=== PATIENT | male | born 1940 | race Caucasian/White ===

== ENCOUNTER → 2023-04-29 12:43 | Outpatient (CLI) | payer OTHER, SELFPAY ==
--- NOTE | ~2023-04-29 | CT_ITS ---
CT of the Abdomen and Pelvis: Indication: Bladder mass Technique: 2.5 mm axial scans were obtained through the abdomen and pelvis prior to and following in travenous administration of 130 cc of Omnipaque 350. Dose reduction technique was used on this scan b y utilizing automated exposure control and iterative reconstruction technique. The dose-length produc t (DLP) was 1943.94 mGy-cm. Findings: Scans through the lung bases are unremarkable. Small hiatal hernia noted. Numerous small hepatic cysts are present. Probable subcentimeter hyperdense right renal cyst. The spl een, pancreas, gallbladder, adrenals and kidneys are otherwise within normal limits. There are athero sclerotic calcifications of the aorta. No lymphadenopathy. No bowel obstruction or bowel wall thickening. There is extensive colonic diverticulosis. Images through the pelvis were performed. There is a 1.5 cm mass at the posterior left urinary bladde r. There is a 2.5 cm right-sided urinary bladder diverticulum. Prostate gland is enlarged, and indent s into the bladder base. No ascites. Impression: 1.5 cm mass of the posterior left urinary bladder. Suspicious for bladder neoplasm until proven other card. Consider cystoscopy. Right-sided urinary bladder diverticulum. Enlarged prostate gland. Small hiatal hernia. Reviewed, dictated and finalized at location [facility] Impression: 1.5 cm mass of the posterior left urinary bladder. Suspicious for bladder neopl asm until proven otherwise. Consider cystoscopy. Right-sided urinary bladder diverticulum. Enlarged prostate gland. Small hiatal hernia.
[2023-04-29 13:10] LABS: Estimated Glomerular Filt Rate > 60
== END ==
PROVIDERS: PCP Family Medicine; Visit Provider Urology
DX: N32.89 Other specified disorders of bladder (principal); K44.9 Diaphragmatic hernia without obstruction or gangrene; N40.0 Benign prostatic hyperplasia without lower urinary tract symptoms; N32.3 Diverticulum of bladder
CPT/HCPCS: 74178; Q9967